=== PATIENT | female | born 1975 | race Caucasian/White ===

== ENCOUNTER 2020-04-02 14:41 | Emergency (ER) | payer SELFPAY ==
[~2020-04-02] VITALS: Ht 170.2 cm; Wt 114.0 kg
--- NOTE | 2020-04-02 15:00 | PHYS DOC ---
Adult General Chief Complaint Chief Complaint: HEAD INJURY/TRAUMA HPI HPI Patient is a 44-year-old female presents emergency department stating that she was wearing socks on hardwood floor slipped backwards and hit the back of her head at approximately 930 this morning. Patient complains of pain to the back of her head and back of her neck when touching it or pushing on it otherwise she has no pain. When palpating the back of her head she states her pain is a 7/10 on a 1-10 pain scale. Patient denies loss of consciousness, patient denies domestic abuse. Patient denies nausea, vomiting. Patient denies pain in other areas of her body, patient denies any sensory loss, any numbness or tingling to her extremities, denies visual changes. Patient does not complain of a headache. Patient does state she feels very tired and is concerned as she slept all night and should not feel tired this time of day. Patient does not complain of any increased thirst or increased urination. Patient denies any urinary symptoms. Patient does report a history of seizures however she has not had a seizure since 2013 and does not take any medications for seizures. Patient denies chest pains, shortness of breath, chest palpitations. Review of Systems Review of Systems 14 body systems of review of systems have been reviewed. See HPI for pertinent positives and negative responses, otherwise all other systems are negative, nonpertinent or noncontributory. Current Medications Current Medications Patient states she is not taking any home medications. Allergies Allergies Patient reports an allergy to penicillin and hydrocodone, patient states that she has an intolerance to seafood and ibuprofen. Physical Exam Physical Exam Constitutional: Well developed, well nourished, no acute distress, non-toxic appearance. HENT: Normocephalic, atraumatic, bilateral external ears normal, oropharynx mo ist, no oral exudates, nose normal. Pain to palpation occipital area of head, no ecchymosis noted no swelling noted no erythema noted, skin intact, no outward physical signs of blunt head injury Eyes: PERRLA, EOMI, conjunctiva normal, no discharge. Neck: Normal range of motion, no tenderness, supple, no stridor. Range of motion of cervical spine did not elicit any pain response, however palpation over midline C-spine area elicited pain, no bony crepitus noted, no ecchymosis no swelling no contusions noted. Cardiovascular:Heart rate regular rhythm, no murmur Lungs & Thorax: Bilateral breath sounds clear to auscultation Abdomen: Bowel sounds normal, soft, no tenderness, no masses, no pulsatile masses. Skin: Warm, dry, no erythema, no rash. Back: No tenderness, no CVA tenderness. Extremities: No tenderness, no cyanosis, no clubbing, ROM intact, no edema. No tenderness to hands, elbows, or pelvis to palpation or AROM/PROM noted. Neurologic: Alert and oriented X 3, normal motor function, normal sensory function, no focal deficits noted. Patient responding keenly and appropriately. Psychologic: Affect normal, judgement normal, mood normal. EKG EKG [] Radiology/Procedures Radiology/Procedures STATUS: REG ER ORD. PHYSICIAN: JAYLAN ROMANO APRN REASON: SLIP/FALL, OCCIPITAL BLUNT INJURY WITH CERVICAL PAIN PROCEDURE: CT HEAD AND CERVICAL SPINE WO CT head without contrast. CT cervical spine without contrast. PQRS statement: CT scans at this facility use dose reduction including either automated exposure control, iterative reconstructions, and /or weight based radiation dosing via mA and kV modification when appropriate to reduce radiation dose to as low as reasonably achievable. HISTORY: Fell and hit head, occipital blunt trauma injury with head pain and cervical pain. CT head findings: No intracranial hemorrhage, mass, hydrocephalus, extra-axial fluid collections or infarction. Orbits, mastoids and bones are unremarkable. IMPRESSION: Normal CT head. CT cervical spine findings: Craniocervical junction intact. Chronic ossicle inferior of the C1 anterior arch and mild osteoarthritic change at the C1-C2 atlantodental articulation. Cervical vertebral body and height and alignment intact. No fracture of the cervical spine. Posterior disc osteophytes contribute to spinal canal stenosis along with uncovertebral spurring with neural foraminal stenoses C5-6 and C6-C7. Lung apices and paraspinal tissues are unremarkable. IMPRESSION: No acute osseous injury of the cervical spine. Cervical disc disease as described above. Electronically signed by: Joel Leon MD (04/02/2020 3:52 PM) [id number] DICTATED AND SIGNED BY: JOEL LEON MD DATE: 04/02/20 1547 CC: JAYLAN ROMANO APRN; EMERGENCY,DEPARTMENT; PCP,NO ~MTH0 0 Heart Score Risk Factors: Risk Factors: DM, Current or recent (<one month) smoker, HTN, HLP, family history of CAD, obesity. Risk Scores: Risk Factors: DM, Current or recent (<one month) smoker, HTN, HLP, family history of CAD, obesity. Course & Med Decision Making Course & Med Decision Making Pertinent Labs and Imaging studies reviewed. (See chart for details) 44-year-old female presents emergency department with report of a slip and fall hitting the back of her head. Vital signs reviewed, vital signs stable at bedside. Patient denies loss of consciousness or domestic abuse, physical examination elicited pain to the C-spine and occipital area of the head. CT imaging of head and C-spine are ordered. Exam results pending. A Hardy collar was placed related to C-spine tenderness. CT head and C-spine read negative for acute process per house radiologist's interpretation. Hardy collar removed, discussed CT findings of arthritic changes in the C-spine, need to follow-up with primary care doctor, discharge home instructions, return to ER precautions and concerns, patient gave verbal understanding of these instructions, had no further questions or concerns, patient discharged home without incident. Diagnosis fall, neck pain, head pain, closed head injury status post fall Dragon Disclaimer Dragon Disclaimer This electronic medical record was generated, in whole or in part, using a voice recognition dictation system. Departure Departure: Impression: Primary Impression: Fall Additional Impressions: Neck pain Head pain Closed head injury without loss of consciousness Disposition: 01 DC HOME SELF CARE/HOMELESS Condition: GOOD Referrals: PCP,NO (PCP) Patient Instructions: Fall Prevention and Home Safety, Head Injury, Adult Additional Instructions: You have been evaluated for a slip and fall, the CAT scan of your head and neck did not show any fractures or acute head injury. You can use ice to the sore areas for the next 48 hours at 15 minutes on 15 minutes off intervals, please use Tylenol for pain or discomfort, follow-up with your primary care doctor this week for reevaluation of your slip and fall and head pain. Return to the emergency department for worsening symptoms or other concerns. Your CAT scan showed some arthritis changes in your cervical spine, please follow-up with your primary care doctor for further evaluation of your arthritis changes EMERGENCY DEPARTMENT GENERAL DISCHARGE INSTRUCTIONS Thank you for coming to [facility] (ED) today and trusting us with you care. We trust that you had a positivie experience in our Emergency Department. If you wish to speak to the department management, you may call the director at [phone]. YOUR FOLLOW UP INSTRUCTIONS ARE FOLLOWS: 1. Do you have a private Doctor? If you do not have a private doctor, please ask for a resource list of physicians or clinics that may be able to assist you with follow up care. 2. The Emergency Physician has interpreted your x-rays. The X-Ray specialist will also review them. If there is a change in the findings, you will be notified in 48 hours when at all possible. 3. A lab test or culture has been done, your results will be reviewed and you will be notified if you need a change in treatment. ADDITIONAL INSTRUCTIONS AND INFORMATION: 1. Your care today has been supervised by a physician who is specially trained in emergency care. Many problems require more than one evaluation for a complete diagnosis and treatment. We recommend that you schedule your follow up appointment as recommended to ensure complete treatment of you illness or injury. If you are unable to obtain follow up care and continue to have a problem, or if your condition worsens, we recommend that you return to the ED. 2. We are not able to safely determine your condition over the phone nor are we able to give sound medical advice over the phone. For these safety reasons, if you call for medical advice we will ask you to come to the ED for further evaluation. 3. If you have any questions regarding these discharge instructions please call the ED at [phone]. SAFETY INFORMATION: In the interest of safety, wellness, and injury prevention; we encourage you to wear your sealbelt, if you smoke; quite smoking, and we encourage family to use a protective helmet for bicycling and other sporting events that present an increased risk for head injury. IF YOUR SYMPTOMS WORSEN OR NEW SYMPTOMS DEVELOP, OR YOU HAVE CONCERNS ABOUT YOUR CONDITION; OR IF YOUR CONDITION WORSENS WHILE YOU ARE WAITING FOR YOUR FOLLOW UP APPOINTMENT; EITHER CONTACT YOUR PRIMARY CARE DOCTOR, THE PHYSICIAN WHOSE NAME AND NUMBER YOU WERE GIVEN, OR RETURN TO THE ED IMMEDIATELY. Problem Qualifiers Primary Impression: Fall Encounter type: initial encounter Qualified Codes: W19.XXXA - Unspecified fall, initial encounter Additional Impressions: Head pain Headache type: unspecified Headache chronicity pattern: unspecified pattern Intractability: not intractable Qualified Codes: R51.9 - Headache, unspecified Closed head injury without loss of consciousness Encounter type: initial encounter Qualified Codes: S09.90XA - Unspecified injury of head, initial encounter JAYLAN ROMANO APRN Apr 02, 2020 15:00
--- NOTE | 2020-04-02 15:55 | RAD ---
CT head without contrast. CT cervical spine without contrast. PQRS statement: CT scans at this facility use dose reduction including either automated exposure cont rol, iterative reconstructions, and /or weight based radiation dosing via mA and kV modification when appropriate to reduce radiation dose to as low as reasonably achievable. HISTORY: Fell and hit head, occipital blunt trauma injury with head pain and cervical pain. CT head findings: No intracranial hemorrhage, mass, hydrocephalus, extra-axial fluid collections or i nfarction. Orbits, mastoids and bones are unremarkable. IMPRESSION: Normal CT head. CT cervical spine findings: Craniocervical junction intact. Chronic ossicle inferior of the C1 anteri or arch and mild osteoarthritic change at the C1-C2 atlantodental articulation. Cervical vertebral dallin dy and height and alignment intact. No fracture of the cervical spine. Posterior disc osteophytes con tribute to spinal canal stenosis along with uncovertebral spurring with neural foraminal stenoses C5- 6 and C6-C7. Lung apices and paraspinal tissues are unremarkable. IMPRESSION: No acute osseous injury of the cervical spine. Cervical disc disease as described above. Electronically signed by: Joel Leon MD (04/02/2020 3:52 PM) [id number]
[2020-04-02 16:34] VITALS: BP 122/78
== END 2020-04-02 16:35 | disposition home or self-care (01) ==
LOC: ER 14:41
DX: S09.90XA Unspecified injury of head, initial encounter (principal); M54.2 Cervicalgia; Z88.0 Allergy status to penicillin; W01.198A Fall on same level from slipping, tripping and stumbling with subsequent striking against other object, initial encounter; Y93.89 Activity, other specified; Y92.89 Other specified places as the place of occurrence of the external cause; Y99.8 Other external cause status
CPT/HCPCS: 70450; 72125; 99285